=== PATIENT | female | born 1930 | race Caucasian/White ===

== ENCOUNTER 2020-09-12 06:04 | Day surgery (SDC) | payer MEDICARE, OTHER ==
[~2020-09-12] VITALS: Ht 152.4 cm; Wt 61.4 kg
[2020-09-12] MEDS ORDERED: POVIDONE-IODINE 10% 15 ML SOLUTION UD TP ONE (06:05)
[2020-09-12] MEDS ORDERED: LIDOCAINE/PF 1% 2 ML VIAL IM ONE (06:05)
[2020-09-12] MEDS ORDERED: MIDAZOLAM HCL 2 MG/2 ML VIAL IVP ONE (06:05)
[2020-09-12] MEDS ORDERED: HYALURONATE SODIUM 12 MG/ML 0.8 ML SYRINGE IO ONE (06:05)
[2020-09-12] MEDS ORDERED: FentaNYL CITRATE PF 100 MCG/2 ML VIAL IVP ONE (06:05)
[2020-09-12] MEDS ORDERED: PrednisoLONE ACETATE 1% 5 ML OPHTHALMIC SUSPENSION OD ONE (06:05)
[2020-09-12] MEDS ORDERED: NEOMYCIN/POLYMYXIN B/DEXAMETH 3.5 GM OPHTHALMIC OINTMENT OD ONE (06:05)
[2020-09-12] MEDS ORDERED: HYALURONATE SOD/CHONDROITIN SOD 0.5 ML VIAL IO ONE (06:05)
[2020-09-12] MEDS ORDERED: RINGERS SOLUTION,LACTATED 500 ML IV ONE (06:30)
[2020-09-12] MEDS ORDERED: TETRACAINE HCL/PF 0.5% 4 ML OPHTHALMIC SOLUTION OD ONE (06:30)
[2020-09-12 06:37] LABS: COVID AG,FIA SOURCE NASOPHARYNGEAL
[2020-09-12] MEDS: PHENYLEPHRINE HCL 2.5% 2 ML OPHTHALMIC SOLUTION OD SCH ×3 (06:38→06:49)
[2020-09-12] MEDS: KETOROLAC TROMETHAMINE 0.5% 5 ML OPHTHALMIC SOLUTION OD SCH ×3 (06:38→06:49)
[2020-09-12] MEDS: TROPICAMIDE 1% 2 ML OPHTHALMIC SOLUTION OD SCH ×3 (06:38→06:49)
[2020-09-12] MEDS: MOXIFLOXACIN HCL 0.5% 3 ML OPHTHALMIC SOLUTION OD SCH ×3 (06:38→06:48)
[2020-09-12] MEDS: CYCLOPENTOLATE HCL 1% 2 ML OPHTHALMIC SOLUTION OD SCH ×3 (06:38→06:49)
[2020-09-12] MEDS ORDERED: AcetaZOLAMIDE SODIUM 500 MG VIAL IVP ONE (08:07)
[2020-09-12] MEDS ORDERED: ONDANSETRON HCL 4 MG/2 ML VIAL ONE (09:01)
[2020-09-12] MEDS ORDERED: ONDANSETRON HCL 4 MG/2 ML VIAL IVP ONE (09:15)
== END 2020-09-12 09:40 | disposition home or self-care (01) ==
LOC: SURGERY 06:04
PROVIDERS: ATTEND Ophthalmology
DX: H25.11 Age-related nuclear cataract, right eye (principal); H40.1110 Primary open-angle glaucoma, right eye, stage unspecified; I10 Essential (primary) hypertension; J45.909 Unspecified asthma, uncomplicated; E78.00 Pure hypercholesterolemia, unspecified; Z79.899 Other long term (current) drug therapy; Z95.4 Presence of other heart-valve replacement; Z90.49 Acquired absence of other specified parts of digestive tract; Z98.890 Other specified postprocedural states
CPT/HCPCS: 66174; 66984; 87426; 93005; C9803; J1120; J2250; J2405; J3010; J3490 ×2; J7120; V2632

== ENCOUNTER 2020-11-11 05:43 | Day surgery (SDC) | payer MEDICARE, OTHER ==
[2020-11-10 12:53] LABS: COVID AG,FIA SOURCE NASOPHARYNGEAL
[~2020-11-11] VITALS: Ht 152.4 cm; Wt 60.5 kg
[2020-11-11] MEDS ORDERED: LIDOCAINE/PF 1% 2 ML VIAL IV ONE (05:44)
[2020-11-11] MEDS ORDERED: EPINEPHrine 1:1,000 [1 MG/ML] AMP IM ONE (05:44)
[2020-11-11] MEDS ORDERED: BALANCED SALT 15 ML OPHTHALMIC IRRIG.SOLN OU ONE (05:44)
[2020-11-11] MEDS ORDERED: HYALURONATE SOD 8.5MG/0.85ML 10 MG/ML SYRINGE IO ONE (05:44)
[2020-11-11] MEDS ORDERED: HYALURONATE SOD/CHONDROITIN SOD 0.5 ML VIAL IO ONE (05:44)
[2020-11-11] MEDS ORDERED: MIDAZOLAM HCL 2 MG/2 ML VIAL IVP ONE (05:44)
[2020-11-11] MEDS ORDERED: PrednisoLONE ACETATE 1% 5 ML OPHTHALMIC SUSPENSION OU ONE (05:44)
[2020-11-11] MEDS ORDERED: POVIDONE-IODINE 10% 15 ML SOLUTION UD TP ONE (05:44)
[2020-11-11] MEDS ORDERED: TETRACAINE HCL/PF 0.5% 4 ML OPHTHALMIC SOLUTION OU ONE (05:44)
[2020-11-11] MEDS ORDERED: BUPIVACAINE HCL/PF 0.75% 10 ML VIAL IM ONE (05:44)
[2020-11-11] MEDS ORDERED: FentaNYL CITRATE PF 100 MCG/2 ML VIAL IVP ONE (05:44)
[2020-11-11] MEDS ORDERED: NEOMYCIN/POLYMYXIN B/DEXAMETH 3.5 GM OPHTHALMIC OINTMENT OU ONE (05:44)
[2020-11-11] MEDS ORDERED: RINGERS SOLUTION,LACTATED 500 ML IV ONE ×2 (05:48→06:30)
[2020-11-11] MEDS ORDERED: TROPICAMIDE 1% 2 ML OPHTHALMIC SOLUTION ONE (05:49)
[2020-11-11] MEDS ORDERED: CYCLOPENTOLATE HCL 1% 2 ML OPHTHALMIC SOLUTION ONE (05:49)
[2020-11-11] MEDS ORDERED: MOXIFLOXACIN HCL 0.5% 3 ML OPHTHALMIC SOLUTION ONE (05:49)
[2020-11-11] MEDS ORDERED: PHENYLEPHRINE HCL 2.5% 2 ML OPHTHALMIC SOLUTION ONE (05:49)
[2020-11-11] MEDS ORDERED: TETRACAINE HCL/PF 0.5% 4 ML OPHTHALMIC SOLUTION ONE (05:49)
[2020-11-11] MEDS ORDERED: KETOROLAC TROMETHAMINE 0.5% 5 ML OPHTHALMIC SOLUTION ONE (05:49)
[2020-11-11] MEDS: CYCLOPENTOLATE HCL 1% 2 ML OPHTHALMIC SOLUTION OS SCH ×3 (06:46→06:59)
[2020-11-11] MEDS: KETOROLAC TROMETHAMINE 0.5% 5 ML OPHTHALMIC SOLUTION OS SCH ×3 (06:46→06:58)
[2020-11-11] MEDS: TROPICAMIDE 1% 2 ML OPHTHALMIC SOLUTION OS SCH ×3 (06:46→06:58)
[2020-11-11] MEDS: PHENYLEPHRINE HCL 2.5% 2 ML OPHTHALMIC SOLUTION OS SCH ×3 (06:46→06:58)
[2020-11-11] MEDS: MOXIFLOXACIN HCL 0.5% 3 ML OPHTHALMIC SOLUTION OS SCH ×3 (06:46→06:58)
[2020-11-11] MEDS ORDERED: TETRACAINE HCL/PF 0.5% 4 ML OPHTHALMIC SOLUTION OS ONE (07:30)
== END 2020-11-11 09:00 | disposition home or self-care (01) ==
LOC: SURGERY 05:43
PROVIDERS: ATTEND Ophthalmology
DX: H25.12 Age-related nuclear cataract, left eye (principal); H40.1120 Primary open-angle glaucoma, left eye, stage unspecified; I10 Essential (primary) hypertension; E78.00 Pure hypercholesterolemia, unspecified; Z90.49 Acquired absence of other specified parts of digestive tract; J45.909 Unspecified asthma, uncomplicated; Z98.890 Other specified postprocedural states; Z95.4 Presence of other heart-valve replacement; Z85.038 Personal history of other malignant neoplasm of large intestine; Z79.899 Other long term (current) drug therapy
CPT/HCPCS: 66984; 66174; 87426; 93005; C9803; J0171; J2250; J3010; J3490 ×2; J7120; V2632